=== PATIENT | female | born 1995 | race Caucasian/White ===

== ENCOUNTER 2017-12-24 19:16 | Emergency (ER) | payer SELFPAY ==
[2016-11-12 05:08] VITALS: Wt 113.4 kg
[~2017-12-24 19:16] MED LIST: IBUP800T37 PO; LOR5/325 PO; PNV91TAB3
--- NOTE | 2017-12-24 19:35 | ER Report ---
History and Physical Time Seen By MD: 19:34 Hx. of Stated Complaint: PATIENT STATES THAT SHE HAS BEEN BLEEDING VAGINALY FOR 12 WEEKS; STATES THAT SHE SATURATES A TAMPON IN 1-2 HOURS; PATIEN HAS AN IUD HPI/ROS CHIEF COMPLAINT: vaginal bleeding HISTORY OF PRESENT ILLNESS: This is a 22 year old female. She has had vaginal bleeding for about 12 days now. Had a normal period about 1 week prior to that. She has some cramping abdominal pain as well. She has a copper IUD. No fevers or chills. No other bleeding such as blood in stool, urine, bruising or other bleeding. She normally has regular periods. She is currently . She has no nausea or vomiting. No chest pain or shortness of breath. No nipple or breast pain. Allergies: Coded Allergies: latex (Verified Allergy, Severe, SHORTNESS OF BREATH, 12/24/17) hives codeine (Verified Adverse Reaction, Intermediate, HALLUCINATIONS, 12/24/17) Home Meds Active Scripts Medroxyprogesterone Acetate (PROVERA) 10 Mg Tablet, 10 MG PO QDAY, #10 TAB 0 Refills Prov:KIMI ERIC MD 12/24/17 Discontinued Reported Medications Pnv95/Ferrous Fumarate/FA ( Caplet) 28 Mg Iron-800 Mcg Tablet 09/06/16 Discontinued Scripts Ibuprofen (IBUPROFEN) 800 Mg Tablet, 800 MG PO Q8H, #30 TAB 0 Refills Prov:SUSANA ALLEN DO 11/13/16 Hydrocodone Bit/Acetaminophen (HYDROCODON-ACETAMINOPHEN 5-325) 1 Each Tablet, 1- 2 EACH PO Q4H Y for PAIN, #20 TAB 0 Refills Prov:SUSANA ALLEN DO 11/13/16 Reviewed Nurses Notes: Yes Hx Smoking: No Smoking Status: Never Smoker Exposure to Second Hand Smoke?: No Constitutional Vital Sign - Last 24 Hours 12/24/17 12/24/17 12/24/17 12/24/17 19:21 20:03 20:16 20:30 Temp 98.3 Pulse 87 70 Resp 18 B/P (MAP) 138/79 120/81 (94) 126/67 (86) Pulse Ox 99 98 12/24/17 12/24/17 12/24/17 12/24/17 20:35 20:50 21:00 21:05 Pulse 75 66 B/P (MAP) 103/33 (56) Pulse Ox 93 99 89 12/24/17 12/24/17 12/24/17 12/24/17 21:20 21:30 21:35 21:40 Pulse 57 72 76 B/P (MAP) 105/68 (80) Pulse Ox 96 96 96 12/24/17 12/24/17 12/24/17 12/24/17 22:25 22:30 22:35 22:50 Pulse 65 74 70 B/P (MAP) 111/51 (71) Pulse Ox 97 95 95 12/24/17 12/24/17 23:00 23:05 Pulse 65 B/P (MAP) 101/49 (66) Pulse Ox 96 Physical Exam General Appearance: The patient is alert. No acute distress. Eyes: Pupils are equal, round. No pallor, injection or icterus. ENT: Mucous membranes are moist. Respiratory: Breathing is easy and unlabored, clear. Cardiovascular: Regular rate and rhythm. Gastrointestinal: Abdomen is soft, with some minimal tenderness in the lower abdomen. Nondistended. No rebound or guarding. Normal active bowel sounds. Neurological: Alert and oriented x3. Skin: Warm and dry. Pelvic exam: The vulva was normal no lesions. The vagina did not have significant discharge there is some darker colored blood in the vaginal vault. The cervix was closed but did have bleeding minimally. No cervical motion tenderness. The uterus was normal size and non tender. The adnexa had tenderness on the left side with palpation but no fullness or masses noted on either side. The exam was performed with a computer scientist. DIFFERENTIAL DIAGNOSIS: After history and physical exam, differential diagnosis was considered for vaginal bleeding and abdominal pain, uncertain etiology. We' ll want to get an ultrasound to see position of the IUD Medical Decision Making Data Points Result Diagram: 12/24/17 2017 Laboratory Hematology Test 12/24/17 19:28 12/24/17 20:17 Red Blood Count 4.68 M/uL (4.17-5.56) Mean Corpuscular Volume 89.5 fL (80.0-96.0) Mean Corpuscular Hemoglobin 31.3 pg (26.0-33.0) Mean Corpuscular Hemoglobin Concent 35.0 g/dL (32.0-36.0) Red Cell Distribution Width 13.4 % (11.5-14.5) Mean Platelet Volume 7.4 fL (7.2-11.1) Neutrophils (%) (Auto) 59.4 % (39.4-72.5) Lymphocytes (%) (Auto) 31.5 % (17.6-49.6) Monocytes (%) (Auto) 7.3 % (4.1-12.4) Eosinophils (%) (Auto) 1.1 % (0.4-6.7) Basophils (%) (Auto) 0.7 % (0.3-1.4) Nucleated RBC Relative Count (auto) 0.0 /100WBC Neutrophils # (Auto) 6.8 K/uL (2.0-7.4) Lymphocytes # (Auto) 3.6 K/uL (1.3-3.6) Monocytes # (Auto) 0.8 K/uL (0.3-1.0) Eosinophils # (Auto) 0.1 K/uL (0.0-0.5) Basophils # (Auto) 0.1 K/uL (0.0-0.1) Nucleated RBC Absolute Count (auto) 0.00 K/uL Prothrombin Time 13.3 seconds (12.0-14.4) Prothromb Time International Ratio 1.01 Activated Partial Thromboplast Time 36 seconds (23-35) Human Chorionic Gonadotropin, Qual Negative (NEGATIVE) Chemistry Test 12/24/17 19:28 12/24/17 20:17 White Blood Count 11.5 k/uL (4.5-11.0) Red Blood Count 4.68 M/uL (4.17-5.56) Hemoglobin 14.7 g/dL (12.0-16.0) Hematocrit 41.9 % (34.0-47.0) Mean Corpuscular Volume 89.5 fL (80.0-96.0) Mean Corpuscular Hemoglobin 31.3 pg (26.0-33.0) Mean Corpuscular Hemoglobin Concent 35.0 g/dL (32.0-36.0) Red Cell Distribution Width 13.4 % (11.5-14.5) Platelet Count 360 K/uL (150-450) Mean Platelet Volume 7.4 fL (7.2-11.1) Neutrophils (%) (Auto) 59.4 % (39.4-72.5) Lymphocytes (%) (Auto) 31.5 % (17.6-49.6) Monocytes (%) (Auto) 7.3 % (4.1-12.4) Eosinophils (%) (Auto) 1.1 % (0.4-6.7) Basophils (%) (Auto) 0.7 % (0.3-1.4) Nucleated RBC Relative Count (auto) 0.0 /100WBC Neutrophils # (Auto) 6.8 K/uL (2.0-7.4) Lymphocytes # (Auto) 3.6 K/uL (1.3-3.6) Monocytes # (Auto) 0.8 K/uL (0.3-1.0) Eosinophils # (Auto) 0.1 K/uL (0.0-0.5) Basophils # (Auto) 0.1 K/uL (0.0-0.1) Nucleated RBC Absolute Count (auto) 0.00 K/uL Prothrombin Time 13.3 seconds (12.0-14.4) Prothromb Time International Ratio 1.01 Activated Partial Thromboplast Time 36 seconds (23-35) Human Chorionic Gonadotropin, Qual Negative (NEGATIVE) Coagulation Test 12/24/17 20:17 Prothrombin Time 13.3 seconds Prothromb Time International Ratio 1.01 Activated Partial Thromboplast Time 36 seconds EKG/Imaging Imaging Ultrasound of the pelvis: Indication: Prolonged bleeding. Technique: Transabdominal and transvaginal imaging, with Doppler. 3-D images were also provided. Comparison: None. Uterus: Normal in size and shape, measuring 6.9 x 4.3 x 3.5 cm. There is no evidence of mass, calcification, or fluid. An IUD appears to be in satisfactory orientation within the endometrial cavity. The endometrial stripe measures 11 mm. Right ovary/adnexa: The right ovary measures 4.1 x 3.5 x 2.7 cm. A 2.3 cm simple cyst is present. Doppler images demonstrate no evidence of ovarian torsion. No adnexal mass or fluid collection is identified. Left ovary/adnexa: The left ovary measures 2.9 x 2.0 x 1.2 cm and appears unremarkable. Doppler images demonstrate no evidence of torsion. No adnexal mass or fluid collection is identified. Free fluid: None seen. IMPRESSION: An IUD appears to be in satisfactory position within endometrial cavity. The uterus is otherwise unremarkable. Report Dictated By: Cole Gibson MD at 12/24/2017 10:45 PM ED Course/Re-evaluation ED Course Labs are unremarkable. Ultrasound shows IUD in good position, some thickening of the endometrium, otherwise negative. Right-sided ovarian cyst. Discussed all this with the patient. We will try Provera 10 mg daily for 7 days. I would like her to follow up with Dr. Allen in the office this coming week. Decision to Disposition Date: Dec 24, 2017 Decision to Disposition Time: 22:55 Depart Departure Latest Vital Signs Vital Signs Date Time Temp Pulse Resp B/P (MAP) Pulse Ox O2 Delivery O2 Flow Rate FiO2 12/24/17 23:05 65 96 12/24/17 23:00 101/49 (66) 12/24/17 19:21 98.3 18 Impression: Primary Impression: Menorrhagia Condition: Improved Disposition: HOME OR SELF-CARE Referrals: SUSANA ALLEN DO (PCP) New Scripts Medroxyprogesterone Acetate (PROVERA) 10 Mg Tablet 10 MG PO QDAY, #10 TAB 0 Refills Prov: KIMI ERIC MD 12/24/17 Patient Instructions: Dysfunctional Uterine Bleeding (ED) Additional Instructions: Start Provera 10mg, one daily for [address] Allen for an appointment next week. Call on Wednesday morning for an appointment. Take Ibuprofen for pain. Problem Qualifiers Primary Impression: Menorrhagia Menorrahagia type: with regular cycle Qualified Codes: N92.0 - Excessive and frequent menstruation with regular cycle KIMI ERIC MD Dec 24, 2017 19:35
[2017-12-24 20:29] LABS: PLATELET COUNT, AUTOMATED 360 K/uL (150-450)
[2017-12-24 20:34] LABS: INR 1.01
--- NOTE | 2017-12-24 22:55 | RADIOLOGY IMAGING REPORT ---
FACILITY: [facility] PATIENT NAME: Nakita Posadas : 1995 MR: [id number] V: [id number] EXAM DATE: ORDERING PHYSICIAN: KIMI ERIC TECHNOLOGIST: Location: [facility] Patient: Nakita Posadas : 1995 Visit/Account:[id number] Date of Sevice: 12/24/2017 Ultrasound of the pelvis: Indication: Prolonged bleeding. Technique: Transabdominal and transvaginal imaging, with Doppler. 3-D images were also provided. Comparison: None. Uterus: Normal in size and shape, measuring 6.9 x 4.3 x 3.5 cm. There is no evidence of mass, calcifi cation, or fluid. An IUD appears to be in satisfactory orientation within the endometrial cavity. The endometrial stripe measures 11 mm. Right ovary/adnexa: The right ovary measures 4.1 x 3.5 x 2.7 cm. A 2.3 cm simple cyst is present. Dop pler images demonstrate no evidence of ovarian torsion. No adnexal mass or fluid collection is identi fied. Left ovary/adnexa: The left ovary measures 2.9 x 2.0 x 1.2 cm and appears unremarkable. Doppler image s demonstrate no evidence of torsion. No adnexal mass or fluid collection is identified. Free fluid: None seen. IMPRESSION: An IUD appears to be in satisfactory position within endometrial cavity. The uterus is ot herwise unremarkable. Report Dictated By: Cole Gibson MD at 12/24/2017 10:45 PM Report E-Signed By: Cole Gibson MD at 12/24/2017 10:51 PM WSN:[id number]
[2017-12-24 23:00] VITALS: BP 101/49
[2017-12-24] MEDS ORDERED: MEDR10TA57 PO (23:05)
[2017-12-25] MEDS ORDERED: medroxyPROGES ACE 10 MG TAB PO SCH (09:00)
== END 2017-12-24 23:40 | disposition home or self-care (01) ==
LOC: ER 19:31
DX: N92.0 Excessive and frequent menstruation with regular cycle (principal); Z97.5 Presence of (intrauterine) contraceptive device
CPT/HCPCS: 36415; 76856; 84703; 85025; 85610; 85730; 87491; 87591; 99284